=== PATIENT | female | born 2000 | race Caucasian/White ===

== ENCOUNTER 2023-12-03 14:57 | Inpatient (IN) | payer BC, MEDICAID, SELFPAY ==
[2023-12-03] VITALS (12 sets, daily range): BP systolic 113–133; BP diastolic 57–78; PULSE 81–106; RESP 18; TEMP 36.7–37.6; O2SAT 97
[2023-12-03 15:09] LABS: Basophils # 0.1 10^3/uL (0.0-0.1); Basophils % 0.3 %; Eosinophils # 0.2 10^3/uL (0.0-0.8); Lymphocytes # 3.2 10^3/uL (0.8-4.8); Lymphocytes % 18.6 %; Mean Corpuscular HGB Conc 30.6 g/dL (30-55); Mean Corpuscular Hemoglobin 24.5 pg (27-33); Mean Corpuscular Volume 80.3 fl (85-98); Mean Platelet Volume 11.2 fL (7.4-10.4); Monocytes % 6.1 %; Neutrophils # 12.59 10^3/uL (1.8-7.7); Neutrophils % 73.1 %; Nucleated Red Blood Cells % 0.1 %; Platelet Count 201 10^3/cmm (157-399); Red Blood Count 4.36 10^6/uL (3.85-5.65); Red Cell Distribution Width 14.5 % (12.1-15.1); White Blood Count 17.19 10^3/uL (3.29-11.43)
--- NOTE | 2023-12-03 15:10 | P.HP_ITS ---
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 Denies LOF, vaginal bleeding. Good movement. She is unsure if she has ruptured membranes. On presentation to labor and delivery she was found to be of advanced dilation per nursing of /. Directly after exam I was called to be informed of patient's status as next on-call physician. I began en route to hospital. She denies significant past medical history and reports care since the first trimester with regular interval care. She reports a GBS negative status. She reports recently moving to the area because of a housing opportunity. She reports 1 other normal and delivered postdates with a noncomplicated spontaneous vaginal delivery. Following delivery labs available on patient's phone via portal are reviewed and are as listed below. Additional labs were drawn and sent prior to review of these labs. Present Details : 2 Para: 1 Labs Blood type OB HPI: O (+) positive Rubella: Immune RPR: Negative GBS: Negative (11/10/23) HBsAG: Negative Other Lab Information: TSH 0.515 Review of Systems 2 General: Reports: ROS unobtainable due to medical condition (She is in pain with contractions but denies any other significant ROS ) Medications/Allergies Home Medications Medication Instructions Recorded Confirmed Last Taken Type 12/03/23 Unknown History Allergies Allergy/AdvReac Type Severity Reaction Status Date / Time latex Allergy ALGY-Rash Verified 12/03/23 15:43 Penicillins Allergy ALGY-Rash Verified 12/03/23 15:43 History History History 2 2 Term 1 0 Miscarriages/Ectopic 0 Living Children 1 Vitals/I&O/Wt Last Vital Signs Pulse 105 H 12/03/23 15:38 BP 118/78 12/03/23 15:38 Physical Exam 2 Const: COMMON NORMALS: healthy appearing, alert and well nourished OTHER: Pain with contractions Resp: COMMON NORMALS: normal respiratory effort and clear to auscultation bilaterally Cardio: COMMON NORMALS: no JVD, regular rate, regular rhythm, S1 normal heart sound present, S2 normal heart sound present and No murmurs present (Cardio) : OTHER: Gravid SVE 9/95/0 on my initial exam Extremity: NARRATIVE EXTREMITY EXAM: No LE edema Data 12/03/23 15:00 Results Labs OB ([facility]): 2 Blood Type O Positive 12/03/23 Antibody Screen Negative 12/03/23 Hct 35.0 % (36-47) L 12/03/23 Hgb 10.70 g/dL (11.27-16.99) L 12/03/23 Rho(D) Type Rh positive 12/03/23 Plt Count 201 10^3/cmm (157-399) 12/03/23 Hep Bs Antigen Non-reactive (Nonreactive) 12/03/23 Rubella IgG Antibody 121.3 IU/mL (0.0-10.0) H 12/03/23 RPR Nonreactive (Nonreactive) 12/03/23 HIV 1&2 Ab & HIV 1 Ag Non-reactive (Non-Reactiv) 12/03/23 C.trachomatis RNA (TMA) Pending 12/03/23 N.gonorrhoeae RNA (TMA) Pending 12/03/23 Chlamydia/GC Comment Pending 12/03/23 A&P Assessment and plan (1) Term : (2) Spontaneous onset of labor: Plan 23-year-old G2, P1 at 39 weeks 2 days is admitted for spontaneous labor and precipitous delivery?see labor and delivery summary for further details. labs have been sent and have partially resulted. Gonorrhea and Chlamydia results not available for review on patient's personal device and will be sent with urine sample. Attestations 2 Medical Necessity Statement*: Michelle Kapoor's hospital stay will require greater than 2 midnights for labor and delivery and care. Coding Level of Care Code Acute Code for Chg Fwd Diagnoses Term Z34.90 Spontaneous onset of labor
[2023-12-03] MEDS: oxytocin 30 UNIT/500 ML BAG 600 UNIT IV (15:30)
[2023-12-03] MEDS: lidocaine 2% INJ 20 mL INJECTION (15:33)
[2023-12-03 15:37] LABS: Hepatitis B Surface Antigen Non-Reactive (Nonreactive); Rubella IgG 121.3 IU/mL (0.0-10.0)
[2023-12-03 15:45] LABS: Rapid Plasma Reagin Syphilis Nonreactive (Nonreactive)
[2023-12-03 15:48] LABS: HIV 1 & 2 Antibody Non-Reactive (Non-Reactiv); HIV 1 & 2 Antigen Non-Reactive (Non-Reactiv)
--- NOTE | 2023-12-03 16:24 | P.PCNOB_ITS ---
Delivery Note: Date of delivery: December 03, 2023 Pre-delivery diagnoses: Term Spontaneous labor Post-delivery diagnoses: Precipitous delivery Delivery of term viable female Procedure: Spontaneous vaginal delivery Delivering Physician: Carolyn Kaba DO Estimated blood loss (mL): 350 Pre-Delivery Course: Patient was admitted on 12/03/2023 with an SVE of 8/90/-1. She quickly progressed to complete. Delivery: Patient progressed to complete. Patient placed in lithotomy position. Patient pushed with adequate effort. Head delivered in ARCELIA position, loose nuchal cord was present and delivered through. Shoulders and rest of body delivered without difficulty with no anesthesia. Loose nuchal was reduced after delivery. Mouth and nares bulb suctioned. placed on maternal abdomen. Cord clamped and cut after 1 minute delay. Placenta spontaneously delivered and intact. Pitocin started. Fundus was noted to be firm with massage. The vagina and cervix were inspected and second-degree midline vaginal laceration, first-degree left periurethral laceration which was noted to be hemostatic and bilateral periurethral abrasions were noted. Second-degree laceration was anesthetized with 2% lidocaine approximately 10 mL and repaired with 3-0 Vicryl. Fundus was again noted to be firm. Female born at 1526 with 8/9 weighing 7 pounds 8 ounces and measuring 21 inches in length, 14.25 inches head circumference and 13.25 inches chest circumference. Placenta noted to be intact with centrally inserted umbilical cord and three-v essel cord. Complications: Maternal none Infant none History History History 2 Term 2 0 Miscarriages/Ectopic 0 Living Children 2 A&P Assessment and plan (1) Spontaneous vaginal delivery: Coding Level of Care Code Acute Code for Chg Fwd Diagnoses Spontaneous vaginal delivery O80
[2023-12-03] MEDS: benzocaine-menthol 78 gm Canister 1 SPRAY TOPICAL (17:37)
[2023-12-03] MEDS: lanolin oint 7 gm 1 APPLIC TOPICAL (17:37)
[2023-12-03] MEDS: docusate sodium 100 mg Capsule PO (17:37)
[2023-12-03] MEDS: ibuprofen 800 mg tablet PO (19:32)
[2023-12-04] MEDS: acetaminophen 325 mg Tablet 650 MG PO
[2023-12-04 00:08] VITALS: BP 125/83; PULSE 74; RESP 18; TEMP 36.8; O2SAT 98
[2023-12-04 00:26] LABS: Amphetamines Screen Urine Negative (Negative); Barbiturates Screen Urine Negative (Negative); Benzodiazepines Screen Urine Negative (Negative); Cocaine Screen Urine Negative (Negative); Opiate Screen Urine Negative (Negative); PCP Screen Urine Negative (Negative); THC Screen Urine Negative (Negative)
[2023-12-04 02:58] LABS: Hematocrit 27.6 % (36-47); Mean Corpuscular HGB Conc 31.9 g/dL (30-55); Mean Corpuscular Hemoglobin 24.5 pg (27-33); Mean Corpuscular Volume 76.9 fl (85-98); Mean Platelet Volume 12.3 fL (7.4-10.4); Platelet Count 205 10^3/cmm (157-399); Red Blood Count 3.59 10^6/uL (3.85-5.65); Red Cell Distribution Width 14.6 % (12.1-15.1); White Blood Count 15.26 10^3/uL (3.29-11.43)
[2023-12-04 04:00] VITALS: BP 105/69; PULSE 90; RESP 16; TEMP 36.6; O2SAT 98
[2023-12-04] MEDS: docusate sodium 100 mg Capsule PO (08:04)
[2023-12-04] MEDS: ibuprofen 800 mg tablet PO (08:04)
[2023-12-04] MEDS: PRENATAL VIT NO.130/IRON/FOLIC 1 EACH TABLET PO (08:04)
--- NOTE | 2023-12-04 08:05 | PM.OBGYDC ---
Discharge Providers DIRECTOR LOSS PREVENTION Date of Admission: 12/03/23 14:57 Date of Discharge: 12/04/23 Attending Provider at Admission: Carolyn Kaba DO Attending Provider at Discharge: Carolyn Kaba DO Diagnoses at Discharge Discharge Diagnosis (1) Spontaneous vaginal delivery: Status: Acute Reason for Visit Reason for Visit: Contractions Hospital Course Hospital Course Pre-Delivery Course: Patient was admitted on 12/03/2023 with an SVE of 8/90/-1. She quickly progressed to complete. Delivery: Patient progressed to complete. Patient placed in lithotomy position. Patient pushed with adequate effort. Head delivered in ARCELIA position, loose nuchal cord was present and delivered through. Shoulders and rest of body delivered without difficulty with no anesthesia. Loose nuchal was reduced after delivery. Mouth and nares bulb suctioned. Infant placed on maternal abdomen. Cord clamped and cut after 1 minute delay. Placenta spontaneously delivered and intact. Pitocin started. Fundus was noted to be firm with massage. The vagina and cervix were inspected and second-degree midline vaginal laceration, first-degree left periurethral laceration which was noted to be hemostatic and bilateral periurethral abrasions were noted. Second-degree laceration was anesthetized with 2% lidocaine approximately 10 mL and repaired with 3-0 Vicryl. Fundus was again noted to be firm. SROM time is unknown. Noted to have small amount of clear amniotic fluid with contractions within 20 minutes prior to delivery however on presentation to L&D no intact amniotic sac was felt. Female born at 1526 with 8/9 weighing 7 pounds 8 ounces and measuring 21 inches in length, 14.25 inches head circumference and 13.25 inches chest circumference. Placenta noted to be intact with centrally inserted umbilical cord and three-vessel cord. Complications: Maternal none none EBL: 350mL course: Patient underwent on 12/03/2023. course was uncomplicated. Following delivery patient ambulated well, tolerated a normal diet without nausea or vomiting. Pain was well-controlled on PO medications, breast-feeding well, no leg/calf pain, no calf/leg swelling, normal urination, passing gas and passing gas. Vaginal bleeding thin lochia and decreasing. labs significant for hemoglobin of 8.8 down from 10.7 on admission. She was started and discharged on daily iron supplementation. Follow-up planned for [address] Kaba as patient does not have local establish care. Warning signs for endometritis, pre-eclampsia, DVT/PE, mastitis were reviewed, discussed additional warning signs including increased vaginal bleeding, worsening abdominal pain. Pelvic rest and activity precautions reviewed as well. She is discharged on 12/04/2023 in stable condition. Information Peripartum Data: Infant Delivery Method: Vaginal Physical Exam Const: COMMON NORMALS: healthy appearing, alert and well nourished Neck/C-Spine: COMMON NORMALS: no JVD Resp: COMMON NORMALS: normal respiratory effort and clear to auscultation bilaterally AUSCULTATION: clear to auscultation bilaterally Cardio: COMMON NORMALS: no JVD, regular rate, regular rhythm, S1 normal heart sound present, S2 normal heart sound present and No murmurs present (Cardio) RATE: regular rate RHYTHM: regular rhythm HEART SOUNDS: S1 normal heart sound present and S2 normal heart sound present : OTHER: Uterine fundus firm and below the umbilicus Extremity: NARRATIVE EXTREMITY EXAM: No LE edema Neuro: SENSORIUM/ORIENTATION: Yes alert History History History 2 Term 2 0 Miscarriages/Ectopic 0 Living Children 2 Discharge Data Studies Completed and Pending Pending at discharge Category Date Time Status Chlamydia/Gonorrh RNA,TMA URO Stat Lab 12/03/23 15:05 Received Laboratory Results WBC 15.26 10^3/uL (3.29-11.43) H 12/04/23 02:45 RBC 3.59 10^6/uL (3.85-5.65) L 12/04/23 02:45 Hgb 8.80 g/dL (11.27-16.99) L 12/04/23 02:45 Hct 27.6 % (36-47) L 12/04/23 02:45 MCV 76.9 fl (85-98) L 12/04/23 02:45 MCH 24.5 pg (27-33) L 12/04/23 02:45 MCHC 31.9 g/dL (30-55) 12/04/23 02:45 RDW 14.6 % (12.1-15.1) 12/04/23 02:45 Plt Count 205 10^3/cmm (157-399) 12/04/23 02:45 MPV 12.3 fL (7.4-10.4) H 12/04/23 02:45 Neut % (Auto) 73.1 % 12/03/23 15:00 Lymph % (Auto) 18.6 % 12/03/23 15:00 [place] % (Auto) 6.1 % 12/03/23 15:00 Eos % (Auto) 1.0 % 12/03/23 15:00 Baso % (Auto) 0.3 % 12/03/23 15:00 Neut # (Auto) 12.59 10^3/uL (1.8-7.7) H 12/03/23 15:00 Lymph # (Auto) 3.2 10^3/uL (0.8-4.8) 12/03/23 15:00 [place] # (Auto) 1.0 10^3/uL (0.2-0.9) H 12/03/23 15:00 Eos # (Auto) 0.2 10^3/uL (0.0-0.8) 12/03/23 15:00 Baso # (Auto) 0.1 10^3/uL (0.0-0.1) 12/03/23 15:00 Nucleated RBC % (auto) 0.1 % 12/03/23 15:00 Nucleated RBCs # 0.0 /100WBC 12/03/23 15:00 Urine Opiates Screen Negative ng/mL (Negative) 12/04/23 00:00 Ur Barbiturates Screen Negative ng/mL (Negative) 12/04/23 00:00 Ur Phencyclidine Scrn Negative ng/mL (Negative) 12/04/23 00:00 Ur Amphetamines Screen Negative ng/mL (Negative) 12/04/23 00:00 U Benzodiazepines Scrn Negative ng/mL (Negative) 12/04/23 00:00 Urine Cocaine Screen Negative ng/mL (Negative) 12/04/23 00:00 U Marijuana (THC) Screen Negative ng/mL (Negative) 12/04/23 00:00 RPR Nonreactive (Nonreactive) 12/03/23 15:00 Hep Bs Antigen Cancelled 12/03/23 15:00 Hep Bs Antigen Non-reactive (Nonreactive) 12/03/23 15:00 HIV 1&2 Ab & HIV 1 Ag Non-reactive (Non-Reactiv) 12/03/23 15:00 HIV 1&2 Antibody Non-reactive (Non-Reactiv) 12/03/23 15:00 Rubella IgG Antibody 121.3 IU/mL (0.0-10.0) H 12/03/23 15:00 Blood Type O Positive 12/03/23 15:00 Rho(D) Type Rh positive 12/03/23 15:00 Antibody Screen Negative 12/03/23 15:00 Vitals Last Vital Signs Temp 98 F 12/04/23 04:00 Pulse 90 12/04/23 04:00 Resp 16 12/04/23 04:00 BP 105/69 12/04/23 04:00 Pulse Ox 98 12/04/23 04:00 O2 Del Method Room Air 12/04/23 04:00 Results Labs OB ([facility]): Blood Type O Positive 12/03/23 Antibody Screen Negative 12/03/23 Hct 27.6 % (36-47) L 12/04/23 Hgb 8.80 g/dL (11.27-16.99) L 12/04/23 Rho(D) Type Rh positive 12/03/23 Plt Count 205 10^3/cmm (157-399) 12/04/23 Hep Bs Antigen Non-reactive (Nonreactive) 12/03/23 Rubella IgG Antibody 121.3 IU/mL (0.0-10.0) H 12/03/23 RPR Nonreactive (Nonreactive) 12/03/23 HIV 1&2 Ab & HIV 1 Ag Non-reactive (Non-Reactiv) 12/03/23 C.trachomatis RNA (TMA) Pending 12/03/23 N.gonorrhoeae RNA (TMA) Pending 12/03/23 Chlamydia/GC Comment Pending 12/03/23 Urine Opiates Screen Negative ng/mL (Negative) 12/04/23 Ur Barbiturates Screen Negative ng/mL (Negative) 12/04/23 Ur Phencyclidine Scrn Negative ng/mL (Negative) 12/04/23 Ur Amphetamines Screen Negative ng/mL (Negative) 12/04/23 U Benzodiazepines Scrn Negative ng/mL (Negative) 12/04/23 Urine Cocaine Screen Negative ng/mL (Negative) 12/04/23 U Marijuana (THC) Screen Negative ng/mL (Negative) 12/04/23 Discharge Plan Discharge Patient Disposition: Home Condition: Stable Prescriptions: New ibuprofen 800 mg Tablet 800 mg PO TID Qty: 90 0RF docusate sodium 100 mg Capsule 100 mg PO BID Qty: 60 0RF ferrous sulfate 325 mg (65 mg iron) Tablet,Delayed Release (Dr/Ec) 325 mg PO DAILY Qty: 90 0RF Continued ukhcnlil-alb-Gd-FA 1 mg Tablet 1 tab PO DAILY Discharge Orders: Discharge Order (Routine); Ordered 12/04/23 Ordered By: Carolyn Kaba Referrals: Carolyn Kaba DO [Physician] - 12/19/23 2:45 pm (Your 2 week appointment: MondayDecember 18 @2:45pm Your 6 week appointment: January 17 @1:30pm ) Discharge Diet: Regular Discharge Activity: Increase activity as tolerated Patient Instructions: Preeclampsia and Eclampsia After Delivery (GEN), Hemorrhage (DC), OB Discharge Report, OB Food/Drug Interaction Guide, OB Care at Home, Opioid Safety, OB Vaginal Deliveries, Abnormal Bleeding, Depression Activity Restrictions/Additional Instructions: Pelvic rest for 6 weeks. Follow-up with Dr. Kaba at 2 and 6 weeks . Discharge Attestations DIRECTOR LOSS PREVENTION Time Spent in Discharge Care*: greater than 30 min Coding Level of Care Code Acute Code for Chg Fwd Diagnoses Spontaneous vaginal delivery O80
[2023-12-04 09:54] VITALS: BP 123/78; PULSE 65; RESP 16; TEMP 36.6
[2023-12-04 17:16] VITALS: BP 118/75; PULSE 64; RESP 17; TEMP 36.7
[2023-12-05 11:49] LABS: Chlamydia Trachomatis RNA TMA NOT DETECTED (NOT DETECTED); Neisseria Gonorrhoeae RNA, TMA NOT DETECTED (NOT DETECTED)
== END 2023-12-04 17:15 | disposition home or self-care (01) | DRG 807 ==
LOC: OPOB 14:57 → OBGYN 14:57
PROVIDERS: Admitting Provider Family Medicine; Visit Provider Family Medicine
DX: O70.1 Second degree perineal laceration during delivery (principal); Z37.0 Single live birth; O71.82 Other specified trauma to perineum and vulva; O69.81X0 Labor and delivery complicated by cord around neck, without compression, not applicable or unspecified; Z3A.39 39 weeks gestation of pregnancy
CPT/HCPCS: 36415; 59025; 59409; 80306; 85025; 85027; 86592; 86762; 86850; 86900; 87340; 87491; 87591; 87806; 99211; J2590

== ENCOUNTER → 2024-08-20 08:42 | Outpatient (BNVA) | payer BC, MEDICAID, SELFPAY | PROVIDERS: Visit Provider Nurse Practitioner Women's Health | DX: Z32.01 Encounter for pregnancy test, result positive (principal); N91.2 Amenorrhea, unspecified | CPT/HCPCS: 81025; 84702; 86850; 86900 ==

== ENCOUNTER → 2024-09-03 07:58 | Outpatient (BNVA) | payer BC, MEDICAID, SELFPAY | PROVIDERS: Visit Provider Nurse Practitioner Women's Health | DX: Z36.9 Encounter for antenatal screening, unspecified (principal) | CPT/HCPCS: 76801 ==

== ENCOUNTER → 2024-09-05 08:51 | Outpatient (BNVA) | payer BC, MEDICAID, SELFPAY | PROVIDERS: Visit Provider Nurse Practitioner Women's Health | DX: Z34.91 Encounter for supervision of normal pregnancy, unspecified, first trimester (principal) | CPT/HCPCS: 80307; 84315; 84702; 85025; 86592; 86762; 86803; 86850; 86900; 87086; 87340; 87491; 87591; 87661; 87806 ==

== ENCOUNTER → 2024-09-11 10:15 | Outpatient (BNVA) | payer BC, MEDICAID, SELFPAY | PROVIDERS: Visit Provider Obstetrics & Gynecology | DX: Z34.90 Encounter for supervision of normal pregnancy, unspecified, unspecified trimester (principal) | CPT/HCPCS: 84315; 87624 ==

== ENCOUNTER → 2024-10-01 08:21 | Outpatient (BNVA) | payer BC, MEDICAID, SELFPAY | PROVIDERS: Visit Provider Nurse Practitioner Women's Health | DX: Z34.90 Encounter for supervision of normal pregnancy, unspecified, unspecified trimester (principal) | CPT/HCPCS: 84315 ==

== ENCOUNTER → 2024-10-30 09:30 | Outpatient (BNVA) | payer BC, MEDICAID, SELFPAY | PROVIDERS: Visit Provider Nurse Practitioner Women's Health | DX: Z34.90 Encounter for supervision of normal pregnancy, unspecified, unspecified trimester (principal) | CPT/HCPCS: 76805 ==

== ENCOUNTER → 2024-11-04 08:13 | Outpatient (BNVA) | payer BC, MEDICAID, SELFPAY | PROVIDERS: Visit Provider Obstetrics & Gynecology | DX: Z34.00 Encounter for supervision of normal first pregnancy, unspecified trimester (principal) | CPT/HCPCS: 84315 ==

== ENCOUNTER → 2024-11-26 09:03 | Outpatient (BNVA) | payer BC, MEDICAID, SELFPAY | PROVIDERS: Visit Provider Nurse Practitioner Women's Health | DX: Z34.90 Encounter for supervision of normal pregnancy, unspecified, unspecified trimester (principal) | CPT/HCPCS: 84315 ==

== ENCOUNTER → 2024-12-25 11:18 | Outpatient (BNVA) | payer BC, MEDICAID, SELFPAY | PROVIDERS: Visit Provider Obstetrics & Gynecology | DX: Z34.90 Encounter for supervision of normal pregnancy, unspecified, unspecified trimester (principal) | CPT/HCPCS: 82950; 84315; 85025 ==

== ENCOUNTER → 2025-01-08 08:02 | Outpatient (BNVA) | payer MEDICAID, SELFPAY | PROVIDERS: Visit Provider Obstetrics & Gynecology | DX: O26.893 Other specified pregnancy related conditions, third trimester (principal); Z3A.30 30 weeks gestation of pregnancy | CPT/HCPCS: 76816; 84315 ==

== ENCOUNTER → 2025-01-22 10:32 | Outpatient (BNVA) | payer BC, MEDICAID, SELFPAY | PROVIDERS: Visit Provider Obstetrics & Gynecology | DX: Z34.90 Encounter for supervision of normal pregnancy, unspecified, unspecified trimester (principal) | CPT/HCPCS: 84315 ==

== ENCOUNTER → 2025-02-05 12:37 | Outpatient (BNVA) | payer BC, MEDICAID, SELFPAY | PROVIDERS: Visit Provider Nurse Practitioner Women's Health | DX: O26.893 Other specified pregnancy related conditions, third trimester (principal); Z3A.34 34 weeks gestation of pregnancy | CPT/HCPCS: 76816; 84315 ==

== ENCOUNTER 2025-02-19 11:45 | Outpatient (CLI) | payer BC, MEDICAID, SELFPAY ==
[2025-02-19 11:58] VITALS: BP 125/77; PULSE 108
[2025-02-19 12:13] VITALS: BMI 35.9
[2025-02-19 12:14] VITALS: BP 120/67; PULSE 107
[2025-02-19 12:28] VITALS: BP 122/65; PULSE 102
[2025-02-19 12:43] VITALS: BP 118/60; PULSE 104
== END 2025-02-19 12:55 | disposition home or self-care (01) ==
LOC: OPOB 11:47 → OBGYN 11:48
PROVIDERS: Visit Provider Obstetrics & Gynecology
DX: O26.899 Other specified pregnancy related conditions, unspecified trimester (principal); Z3A.00 Weeks of gestation of pregnancy not specified
CPT/HCPCS: 59025; 84315; 87081; 99211

== ENCOUNTER → 2025-02-26 10:51 | Outpatient (BNVA) | payer BC, MEDICAID, SELFPAY | PROVIDERS: Visit Provider Obstetrics & Gynecology | DX: Z34.90 Encounter for supervision of normal pregnancy, unspecified, unspecified trimester (principal) | CPT/HCPCS: 84315 ==

== ENCOUNTER → 2025-03-05 10:29 | Outpatient (BNVA) | payer BC, MEDICAID, SELFPAY | PROVIDERS: Visit Provider Obstetrics & Gynecology | DX: Z34.90 Encounter for supervision of normal pregnancy, unspecified, unspecified trimester (principal) | CPT/HCPCS: 84315 ==

== ENCOUNTER → 2025-03-12 10:56 | Outpatient (BNVA) | payer BC, MEDICAID, SELFPAY | PROVIDERS: Visit Provider Obstetrics & Gynecology | DX: Z34.90 Encounter for supervision of normal pregnancy, unspecified, unspecified trimester (principal) | CPT/HCPCS: 84315 ==

== ENCOUNTER → 2025-03-19 10:10 | Outpatient (BNVA) | payer BC, MEDICAID, SELFPAY | PROVIDERS: Visit Provider Obstetrics & Gynecology | DX: O99.019 Anemia complicating pregnancy, unspecified trimester (principal) | CPT/HCPCS: 84315 ==

== ENCOUNTER 2025-03-25 17:10 | Outpatient (CLI) | payer BC, MEDICAID, SELFPAY ==
[2025-03-25 17:16] VITALS: BP 130/66; PULSE 99
[2025-03-25 17:20] VITALS: RESP 16; BMI 36.3
[2025-03-25 17:32] VITALS: BP 130/66; PULSE 96
[2025-03-25 17:48] VITALS: BP 130/66; PULSE 96; RESP 16; TEMP 35.3; O2SAT 99
== END 2025-03-25 17:48 | disposition home or self-care (01) ==
LOC: OPOB 17:12 → OBGYN 17:12
PROVIDERS: Visit Provider Obstetrics & Gynecology
DX: O48.0 Post-term pregnancy (principal); Z3A.00 Weeks of gestation of pregnancy not specified
CPT/HCPCS: 59025; 99211

== ENCOUNTER 2025-03-28 01:37 | Inpatient (IN) | payer BC, MEDICAID, SELFPAY ==
[2025-03-28] VITALS (24 sets, daily range): BP systolic 105–143; BP diastolic 56–100; PULSE 84–127; RESP 15–16; TEMP 36.7–36.9; O2SAT 97–100; BMI 36.6
[2025-03-28 01:52] LABS: Hematocrit 30.4 % (36-47); Hemoglobin 8.90 g/dL (11.27-16.99); Mean Corpuscular HGB Conc 29.3 g/dL (30-55); Mean Corpuscular Hemoglobin 20.3 pg (27-33); Mean Corpuscular Volume 69.2 fl (85-98); Nucleated Red Blood Cells % 1.2 %; Platelet Count 233 10^3/cmm (157-399); Red Blood Count 4.39 10^6/uL (3.85-5.65); White Blood Count 14.12 10^3/uL (3.29-11.43)
--- NOTE | 2025-03-28 01:57 | PM.HP ---
Providers/Chief Complaint Admitting Physician: Sherif Storey MD Chief Complaint: contractions History of Present Illness Michelle Kapoor is a 24 year old established patient with an LMP of 12-10-24. LUDY: 03/18/2025 based on LMP and consistent with sonogram she is 41.3 weeks. Her is complicated by postdates. The patient presented to labor and delivery secondary to increasing contractions. She noted contractions that started around midnight. They have gradually worsened and upon presentation she was 8.5 cm dilation with a bulging bag of water. The patient denies any chest pains, shortness of breath, nausea, vomiting, diarrhea, constipation, dysuria, vaginal bleeding. Medications/Allergies Home Medications ?Medication ?Instructions ?Recorded ?Confirmed ?Last Taken ?Type iothvxqn-cbm-Ev-FA 1 mg 1 tab PO DAILY 12/03/23 03/19/25 Unknown History tablet famotidine 20 mg tablet (Pepcid) 20 mg PO DAILY 09/05/24 03/19/25 Unknown History metoclopramide HCl 5 mg tablet 5 mg PO DAILY #30 tabs 01/08/25 03/19/25 Unknown Rx (Reglan) ferrous sulfate 325 mg (65 mg 325 mg PO .every other day #60 tabs 02/05/25 03/19/25 Unknown Rx iron) tablet Allergies Allergy/AdvReac Type Severity Reaction Status Date / Time latex Allergy ALGY-Rash Verified 03/19/25 10:18 Penicillins Allergy ALGY-Rash Verified 03/19/25 10:18 PFSH Acute PFSH: Medical History No pertinent past medical history Neghx: ht, dm, thryoid, dvt/pe PC:NA Surgical History [place] teeth extracted Family History Denies family history of Colon cancer Ovarian cancer Diabetes Depression Heart disease Breast cancer Hypertension Uterine cancer Thyroid disease Stroke Social History Smoking and tobacco/nicotine status: never used tobacco/nicotine Vitals/I&O/Wt Last Vital Signs Pulse 120 H 03/28/25 01:35 BP 132/79 03/28/25 01:35 Physical Exam Narrative: General: Alert and oriented x3. Having painful contractions. Eyes: Pupils equal round and reactive to light and accommodation Mouth: Mucous membranes moist, pharynx non-erythematous Cardiac: Regular rate and rhythm without murmurs Lungs: Clear to auscultation bilaterally without wheezes, crackles or rhonchi Abdomen: Soft, non-tender, fundus consistent with gestational age Extremities: Trace edema in the bilateral lower extremities Data 03/28/25 01:35 A&P Assessment and plan 1. Intrauterine : The patient presents in spontaneous labor. She is 8-1/2 cm dilated. She wishes to go without a laboring epidural. heart tones are in the mid 140s with a category 1 tracing. Contractions are every 2 to 4 minutes. The patient is GBS negative. Will proceed with routine intrapartum management. The patient is in agreement with the current plan of care. 2. Spontaneous onset of labor: 3. Anemia affecting , antepartum: PDMP PDMP Reviewed: Not Reviewed Attestations Medical Necessity Statement*: The patient will be here for greater than 2 midnights due to routine intrapartum and management of labor and delivery. Coding Level of Care Code Acute Code for Chg Fwd Diagnoses Intrauterine Z34.90 Spontaneous onset of labor Anemia affecting , antepartum O99.019 Trimester: unspecified trimester
[2025-03-28] MEDS: oxytocin 30 UNIT/500 ML BAG 600 UNIT IV (02:28)
[2025-03-28] MEDS: lidocaine 2% INJ 20 mL INJECTION (02:34)
--- NOTE | 2025-03-28 02:45 | P.PCNOB_ITS ---
Delivery Note: Date of delivery: March 28, 2025 Pre-delivery diagnoses: 1. Intrauterine at 41.3 weeks gestation 2. Postdates 3. Anemia Post-delivery diagnoses: 1. Intrauterine status post s pontaneous vaginal delivery at 41.3 weeks gestation 2. Postdates 3. Delivery of healthy female we ighing 8 pounds 7 ounces with Apgars of 8 and 9 4. Anemia 5. First-degree perineal laceration wit h repair Procedure: 1. Spontaneous vaginal delivery 2. First-degree perineal laceration wit h repair Delivering Physician: Sherif Storey MD Estimated blood loss (mL): 100 Findings: 1. Intact placenta with central umbilic al cord insertion site 2. Healthy female weighing 8 bernice nds 7 ounces with Apgars of 8 and 9 Pre-Delivery Course: Michelle Kapoor is a 24 year old G3 NOW [id number] status post spontaneous vaginal delivery at 41.3 weeks gestation. Her was complicated by postdates, anemia. The patient presented to labor and delivery secondary to increasing contractions. She noted contractions that started around midnight. They had gradually worsened and upon presentation she was 8.5 cm dilation with a bulging bag of water. The patient denied any chest pains, shortness of breath, nausea, vomiting, diarrhea, constipation, dysuria, vaginal bleeding. Delivery: The patient was uncomfortable and in order to augment the labor process, AROM was performed at 2:11 AM on 03/28/2025. She was an anterior lip with a bulging bag at that time. Fluid was clear. The patient was then complete by 2:17 AM on 03/28/2025. The patient began pushing at 2:18 AM and pushed well. The infant descended quickly and the infant's head was delivered in the OA position. No nuchal cord was noted. Downward pressure was placed in the right shoulder delivered without complication. With upper pressure, the left shoulder delivered followed by the rest of the . The 's mouth and nose were bulb suctioned by myself. The was vigorous upon delivery. The was placed on the mother's chest where the nurses were waiting to care for her. The cord was clamped by myself after approximately 1 minute and cord blood was obtained. The cord was then drained of blood and traction was placed on the umbilical cord. Uterine massage was carried out and the placenta delivered without complication at 2:28 AM on 03/28/2025. The placenta was noted to be intact with a central umbilical cord insertion site. IV Pitocin was bolused. The cervix was inspected and no lacerations were noted. The vaginal wall was inspected and there was a small first-degree laceration in the perineal region. This was bleeding, so 2% lidocaine was placed locally for anesthesia and 3-0 Vicryl was used to repair the laceration in a running fashion. The patient tolerated this well. Currently the patient's bleeding has been slow. EBL was 100 mL. Currently both the mother and infant are doing well. History History History 3 Term 3 0 Miscarriages/Ectopic 0 Living Children 3 Past Pregnancies Del. Date GA/Weeks Outcome Route Wt Inf Gender Labor Lgth Comp. Anesth esia Location 03/28/25 41 live - full term Vaginal 8 lb 7 oz Female 2 hr [facility] - [place] Delivery Date: 03/28/25 Last Updated by: Sherif Storey MD Spontaneous labor, small first-degree laceration with repair A&P Assessment and plan 1. Spontaneous vaginal delivery: PDMP PDMP Reviewed: Not Reviewed Coding Level of Care Code Acute Code for Chg Fwd Diagnoses Spontaneous vaginal delivery O80
[2025-03-28] MEDS: benzocaine-menthol 78 gm Canister 1 SPRAY TOPICAL (04:24)
[2025-03-28] MEDS: PRENATAL VIT NO.130/IRON/FOLIC 1 EACH TABLET PO (08:26)
[2025-03-28 15:00] LABS: Hematocrit 28.0 % (36-47); Hemoglobin 8.30 g/dL (11.27-16.99); Mean Corpuscular HGB Conc 29.6 g/dL (30-55); Mean Corpuscular Hemoglobin 20.7 pg (27-33); Mean Corpuscular Volume 69.8 fl (85-98); Platelet Count 236 10^3/cmm (157-399); Red Blood Count 4.01 10^6/uL (3.85-5.65); White Blood Count 13.23 10^3/uL (3.29-11.43)
[2025-03-29 04:00] VITALS: BP 129/80; PULSE 87; RESP 16; TEMP 36.7; O2SAT 100
--- NOTE | 2025-03-29 07:29 | P.DS_ITS ---
Discharge Providers Date of Admission: 03/28/25 01:37 Date of Discharge: March 29, 2025 Attending Provider at Admission: Sherif Storey MD Attending Provider at Discharge: Sherif Storey MD Diagnoses at Discharge Discharge Diagnosis 1. Spontaneous vaginal delivery: Other Information Additional DC diagnoses/information: 1. Intrauterine status post spontaneous vaginal delivery at 41.3 weeks gestation 2. Postdates 3. Delivery of healthy infant female weighing 8 pounds 7 ounces with Apgars of 8 and 9 4. Anemia 5. First-degree perineal laceration with repair Reason for Visit Reason for Visit: contractions Brief History: Michelle Kapoor is a 24 year old G3 NOW [id number] established patient status post spontaneous vaginal delivery at 41.3 weeks. Her was complicated by postdates. The patient presented to labor and delivery secondary to increasing contract ions. She noted contractions that started around midnight. They had gradually worsened and upon presentation she was 8.5 cm dilation with a bulging bag of water. For this reason she was admitted. Hospital Course Hospital Course The patient had an uncomplicated vaginal delivery and delivered a healthy female at 2:20 AM on 03/28/2025. The patient had a small first-degree tear that was repaired. Her bleeding has been slow. she has done well. The patient is ambulating, voiding, passing gas and tolerating food by mouth. Her pain is currently well-controlled. She did have anemia upon presentation with a hemoglobin of 8.9. Her hemoglobin dropped down to 8.3 . She is not having any significant symptoms of anemia at this time. She will be discharged home on iron tablets as well as a vitamin. Routine discharge instructions were discussed. All questions were answered. The patient is in agreement with discharge home at this time. She will plan to follow-up with OB at 6 weeks or sooner if needed. Physical Exam Narrative: General: Alert and oriented x3 Cardiac: Regular rate and rhythm without murmurs Lungs: Clear to auscultation bilaterally without wheezes, crackles or rhonchi Abdomen: Soft, mild tenderness over uterus. The uterus is firm and 2 cm below the umbilicus. Extremities: Trace edema in the bilateral lower extremities Discharge Data Studies Completed and Pending Laboratory Results WBC 13.23 10^3/uL (3.29-11.43) H 03/28/25 14:39 RBC 4.01 10^6/uL (3.85-5.65) 03/28/25 14:39 Hgb 8.30 g/dL (11.27-16.99) L 03/28/25 14:39 Hct 28.0 % (36-47) L 03/28/25 14:39 MCV 69.8 fl (85-98) L 03/28/25 14:39 MCH 20.7 pg (27-33) L 03/28/25 14:39 MCHC 29.6 g/dL (30-55) L 03/28/25 14:39 RDW 19.5 % (12.1-15.1) H 03/28/25 14:39 Plt Count 236 10^3/cmm (157-399) 03/28/25 14:39 MPV 11.4 fL (7.4-10.4) H 03/28/25 14:39 Neut % (Auto) 59.6 % 03/28/25 01:35 Lymph % (Auto) 26.8 % 03/28/25 01:35 [place] % (Auto) 8.9 % 03/28/25 01:35 Eos % (Auto) 2.0 % 03/28/25 01:35 Baso % (Auto) 0.4 % 03/28/25 01:35 Neut # (Auto) 8.42 10^3/uL (1.8-7.7) H 03/28/25 01:35 Lymph # (Auto) 3.8 10^3/uL (0.8-4.8) 03/28/25 01:35 [place]win # (Auto) 1.3 10^3/uL (0.2-0.9) H 03/28/25 01:35 Eos # (Auto) 0.3 10^3/uL (0.0-0.8) 03/28/25 01:35 Baso # (Auto) 0.1 10^3/uL (0.0-0.1) 03/28/25 01:35 Nucleated RBC % (auto) 1.2 % 03/28/25 01:35 Nucleated RBCs # 0.2 /100WBC 03/28/25 01:35 Blood Type O Positive 03/28/25 01:35 Rho(D) Type Rh positive 03/28/25 01:35 Antibody Screen Negative 03/28/25 01:35 Vitals Last Vital Signs Temp 98.1 F 03/29/25 04:00 Pulse 87 03/29/25 04:00 Resp 16 03/29/25 04:00 BP 129/80 03/29/25 04:00 Pulse Ox 100 03/29/25 04:00 O2 Del Method Room Air 03/29/25 04:00 Discharge Plan Discharge Patient Disposition: Home Condition: Stable Prescriptions: New ibuprofen 800 mg Tablet 800 mg PO TID Qty: 30 0RF Continued famotidine [Pepcid] 20 mg tablet 20 mg PO DAILY [id number] 1 mg Tablet 1 tab PO DAILY Changed ferrous sulfate 325 mg (65 mg iron) tablet 325 mg PO BID Qty: 60 1RF Rx Instructions: take every other day Discontinued metoclopramide HCl [Reglan] 5 mg tablet 5 mg PO DAILY Qty: 30 3RF Rx Instructions: take once daily Discharge Order = DC NOW: Discharge Order (Routine); Ordered 03/29/25 Ordered By: Sherif Storey Referrals: Antonino Quiroz MD [Physician, EMPLOYEE [employer]ACEMENT [employer]IST] - 6 Weeks Discharge Diet: Regular Discharge Activity: Increase activity as tolerated Patient Instructions: Opioid Safety, Patient Portal & Deric Instructions Activity Restrictions/Additional Instructions: Nothing per vagina for 6 weeks. Take extra precaution with hot showers as they can lead to increased risk for passing out. Be sure to take your iron tablets twice a day to help improve your blood count. Showers are recommended instead of baths for the first 6 weeks. Discharge Attestations Time Spent in Discharge Care*: greater than 30 min Quality Metrics Clinical Quality Measures [ No reported AMI, CVA or VTE this stay] Coding Level of Care Code Acute Code for Chg Fwd Diagnoses Spontaneous vaginal delivery O80
[2025-03-29] MEDS: ferrous sulfate EC 325 mg Tablet PO (08:45)
[2025-03-29] MEDS: PRENATAL VIT NO.130/IRON/FOLIC 1 EACH TABLET PO (08:45)
[2025-03-29 10:08] VITALS: BP 113/77; PULSE 66; RESP 16; TEMP 36.6; O2SAT 100
== END 2025-03-29 10:15 | disposition home or self-care (01) | DRG 807 ==
LOC: OPOB 01:38 → OBGYN 01:38
PROVIDERS: Absent Provider Family Medicine; Admitting Provider Family Medicine; Visit Provider Family Medicine
DX: O48.0 Post-term pregnancy (principal); Z37.0 Single live birth; Z3A.41 41 weeks gestation of pregnancy; O99.02 Anemia complicating childbirth; D64.9 Anemia, unspecified; O70.0 First degree perineal laceration during delivery; Z88.0 Allergy status to penicillin; Z91.040 Latex allergy status
CPT/HCPCS: 36415; 59025; 59409; 85025; 85027; 86850; 86900; 99211; J2590; J7121; J9999